=== PATIENT | male | born 1960 | race Caucasian/White ===

== ENCOUNTER 2018-06-22 16:07 | Emergency (ER) | payer OTHER ==
[~2018-06-22] VITALS: Wt 96.0 kg
[2018-06-22 16:28] VITALS: BP 142/80; PULSE 113; RESP 18
[2018-06-22] MEDS ORDERED: PERMETHRIN 1% 59 ML TOP ONE (17:30)
[2018-06-22] MEDS ORDERED: TRIMETHOPRIM/SULFAMETHOX (DS) TAB PO ONE (17:30)
[2018-06-22] MEDS ORDERED: MUPI22OI2 TOP (17:38)
[2018-06-22] MEDS ORDERED: ELIM TOP (17:38)
[2018-06-22] MEDS ORDERED: METF-849 PO (17:38)
[2018-06-22] MEDS ORDERED: SULF1TAB31 PO (17:38)
[2018-06-22] MEDS ORDERED: GABA-528 PO (17:42)
[2018-06-22] MEDS ORDERED: NAPR-985 PO (17:42)
[2018-06-22] MEDS ORDERED: CHOL400T10 PO (17:43)
--- NOTE | 2018-06-22 17:44 | ERD ---
ER Documentation Chief Complaint Chief Complaint RASH HPI 57-year-old male presents with intermittent rashes over the last few months. Is been in temporary housing in [facility] but was recently transferred near this hospital. He was in the middle of being treated for staph infection of extremities with Bactrim and scabies with permethrin but states that his treatment was interrupted due to the move. Denies any fevers, vomiting, sh ortness of breath. Is also requesting refills of his gabapentin and Naprosyn. He is requesting retreatment with permethrin and resumption of Bactrim. He is here with his partner with similar symptoms or skin lesions. ROS All systems reviewed and are negative except as per history of present illness. Medications Home Meds Active Scripts Cholecalciferol* (Vitamin D*) 400 Unit Tablet, 800 UNIT PO DAILY, #90 TAB Prov:FERDINAND TALBOT MD 06/22/18 Naproxen* (Naprosyn*) 500 Mg Tablet, 500 MG PO BID PRN for PAIN AND/OR INFLAMMATION, #40 TAB Prov:FERDINAND TALBOT MD 06/22/18 Gabapentin* (Gabapentin*) 800 Mg Tablet, 800 MG PO TID, #90 TAB Prov:FERDINAND TALBOT MD 06/22/18 Mupirocin* (Bactroban*) 2% -22 Gram Oint...g., 1 APPLIC TOP BID for 7 Days, EA Prov:FERDINAND TALBOT MD 06/22/18 Permethrin* (Elimite*) 5% Cr, 1 APPLIC TOP ONCE for 1 Day, TUB Prov:FERDINAND TALBOT MD 06/22/18 Sulfamethoxazole/Trimethoprim* (Bactrim Ds* Tablet) 1 Each Tablet, 1 TAB PO BID for 10 Days, #14 TAB Prov:FERDINAND TALBOT MD 06/22/18 Reported Medications [None] No Conflict Check 05/23/09 Discontinued Scripts Metformin* (Glucophage*) 500 Mg Tab, 500 MG PO BID, #60 TAB Prov:FERDINAND TALBOT MD 06/22/18 Allergies Allergies: Coded Allergies: No Known Allergies (Verified Allergy, Mild, 05/23/09) PMhx/Soc History of Surgery: No Hx Neurological Disorder: No Hx Respiratory Disorders: No Hx Cardiac Disorders: No Hx Miscellaneous Medical Probl: No Hx Alcohol Use: Yes Hx Substance Use: No Hx Tobacco Use: Yes Physical Exam Vitals Vital Signs Date Temp Pulse Resp B/P (MAP) Pulse Ox O2 O2 Flow FiO2 Time Delivery Rate 06/22/18 97.9 113 18 142/80 99 16:28 (100) Physical Exam Const: No acute distress Head: Atraumatic Eyes: Normal Conjunctiva ENT: Normal External Ears, Nose and Mouth. Neck: Full range of motion. No meningismus. Resp: Clear to auscultation bilaterally Cardio: Regular rate and rhythm, no murmurs Abd: Soft, non tender, non distended. Normal bowel sounds Skin: No petechiae or rashes scattered erythematous open lesions on the forearms and hands. No induration or streaking. Scattered maculopapular lesions as well. No obvious serpiginous lesions. Back: No midline or flank tenderness Ext: No cyanosis, or edema Neur: Awake and alert Psych: Normal Mood and Affect Results 24 hrs Current Medications Medications Dose Sig/Margareth Start Time Status Last (Trade) Ordered Route PRN Stop Time Admin Dose Reason Admin 1 tab ONCE ONCE 06/22/18 DC Trimethoprim/ PO 17:30 06/22/18 17:32 Sulfamethoxaz ole (Bactrim (Ds)) Permethrin 1 applic ONCE ONCE 06/22/18 DC (Nix) TOP 17:30 06/22/18 17:32 Procedures/MDM Patient presents with nonspecific skin lesions with suggestive of likely staph infection. Patient will be treated empirically for scabies as well given his history with permethrin but will be resumed on Bactrim and resumption of his home meds gabapentin and Naprosyn as well. Is no signs of sepsis, purpura, life-threatening rashes, necrotizing fasciitis. Departure Diagnosis: Primary Impression: Rash Condition: Stable Referrals: DOCTOR,NOT ON STAFF (PCP) COMMUNITY CLINICS YOU HAVE RECEIVED A MEDICAL SCREENING EXAM AND THE RESULTS INDICATE THAT YOU DO NOT HAVE A CONDITION THAT REQUIRES URGENT TREATMENT IN THE EMERGENCY DEPARTMENT. FURTHER EVALUATION AND TREATMENT OF YOUR CONDITION CAN WAIT UNTIL YOU ARE SEEN IN YOUR DOCTORS OFFICE WITHIN THE NEXT 1-2 DAYS. IT IS YOUR RESPONSIBILITY TO MAKE AN APPOINTMENT FOR FOLOW-UP CARE. IF YOU HAVE A PRIMARY DOCTOR --you should call your primary doctor and schedule an appointment IF YOU DO NOT HAVE A PRIMARY DOCTOR YOU CAN CALL OUR PHYSICIAN REFERRAL HOTLINE AT IF YOU CAN NOT AFFORD TO SEE A PHYSICIAN YOU CAN CHOSE FROM THE FOLLOWING [facility] [address] [facility] [address] [facility] [facility] [address] [facility] [address] [facility] [address] [facility]. [facility] [address] Additional Instructions: Recheck with primary doctor for treatment of diabetes and arthritis. Recheck otherwise for fevers, worsening swelling, redness, new worsening symptoms. FERDINAND TALBOT MD June 22, 2018 17:44
== END 2018-06-22 18:13 | disposition home or self-care (01) ==
LOC: FTE 16:07
DX: R21 Rash and other nonspecific skin eruption (principal); Z87.891 Personal history of nicotine dependence
CPT/HCPCS: Z7502; Z7610; 99283

== ENCOUNTER 2018-07-13 18:09 | Emergency (ER) | payer OTHER ==
[~2018-07-13] VITALS: Ht 188 cm; Wt 92.0 kg
[~2018-07-13 18:09] MED LIST: CHOL400T10 PO; ELIM TOP; GABA-528 PO; MUPI22OI2 TOP; NAPR-985 PO; SULF1TAB31 PO
[2018-07-13 18:52] VITALS: BP 128/81; PULSE 106; RESP 18; Ht 188 cm; Wt 92.0 kg
--- NOTE | 2018-07-13 20:24 | ERD ---
ER Documentation Chief Complaint Chief Complaint S/P SCABIES TX, LEFT FOREARM STILL PRESENTS WITH RASH HPI 57-year-old male with past medical history of herpes simplex virus type I and scabies presenting to the emergency department complaining of tingling sensation to the corners of his lips and itching to his bilateral upper extremities for the past several weeks. He states he completed a scabies treatment 2 weeks ago but has continued to have itching and lesions noted to his arms. He states he is homeless. He reports associated pruritus which is intermittent. He denies any fevers, chills, or other symptoms at this time. ROS All systems reviewed and are negative except as per history of present illness. Medications Home Meds Active Scripts Doxycycline Hyclate* (Doxycycline Hyclate*) 100 Mg Tablet.dr, 100 MG PO BID for 10 Days, TAB Prov:ENEDINA LIU PA-C 07/13/18 Permethrin* (Elimite*) 5% Cr, 1 APPLIC TOP ONCE, #1 TUB 1 Refill Prov:ENEDINA LIU PA-C 07/13/18 Docosanol (Abreva) 2 Gm Cream.gm., 1 APPLIC TOP 5 TIMES DAILY, #1 TUB Prov:ENEDINA LIU PA-C 07/13/18 Cholecalciferol* (Vitamin D*) 400 Unit Tablet, 800 UNIT PO DAILY, #90 TAB Prov:FERDINAND TALBOT MD 06/22/18 Naproxen* (Naprosyn*) 500 Mg Tablet, 500 MG PO BID PRN for PAIN AND/OR INFLAMMATION, #40 TAB Prov:FERDINAND TALBOT MD 06/22/18 Gabapentin* (Gabapentin*) 800 Mg Tablet, 800 MG PO TID, #90 TAB Prov:FERDINAND TALBOT MD 06/22/18 Mupirocin* (Bactroban*) 2% -22 Gram Oint...g., 1 APPLIC TOP BID for 7 Days, EA Prov:FERDINAND TALBOT MD 06/22/18 Permethrin* (Elimite*) 5% Cr, 1 APPLIC TOP ONCE for 1 Day, TUB Prov:FERDINAND TALBOT MD 06/22/18 Sulfamethoxazole/Trimethoprim* (Bactrim Ds* Tablet) 1 Each Tablet, 1 TAB PO BID for 10 Days, #14 TAB Prov:FERDINAND TALBOT MD 06/22/18 Reported Medications [None] No Conflict Check 05/23/09 Allergies Allergies: Coded Allergies: No Known Allergies (Verified Allergy, Mild, 05/23/09) PMhx/Soc History of Surgery: No Hx Neurological Disorder: No Hx Respiratory Disorders: No Hx Cardiac Disorders: No Hx Miscellaneous Medical Probl: No Hx Alcohol Use: Yes Hx Substance Use: No Hx Tobacco Use: Yes Smoking Status: Current every day smoker FmHx Family History: No diabetes Physical Exam Vitals Vital Signs Date Temp Pulse Resp B/P (MAP) Pulse Ox O2 O2 Flow FiO2 Time Delivery Rate 07/13/18 97.7 106 18 128/81 98 18:52 (97) Physical Exam Const: No acute distress Head: Atraumatic Eyes: Normal Conjunctiva ENT: Normal External Ears, Nose and Mouth. Neck: Full range of motion. No meningismus. Resp: No respiratory distress. Skin: No petechiae or rashes Ext: Multiple skin lesions noted to the bilateral upper extremities with mild surrounding erythema. There are some linear burrows present. Neur: Awake and alert Psych: Normal Mood and Affect Procedures/MDM 57-year-old male presents to the emergency department with signs and symptoms most consistent with early herpes simplex virus 1 outbreak and scabies. No evidence of significant or disseminated cellulitis. No evidence of sepsis. Patient will be treated as an outpatient with prescriptions and advised to follow-up with a primary care physician within the next 24 to 48 hours and return to the department immediately for any new or worsening or concerning sy mptoms. Patient was in agreement with the diagnosis, plan, need for follow-up, return precautions. Departure Diagnosis: Primary Impression: Rash and nonspecific skin eruption Condition: Fair Additional Instructions: Follow up with your PCP within the next 1-3 days for a repeat evaluation. If you require a referral to a specialist, your Primary Care Provider may be able to provide this for you. In most patient cases, a referral is not required. If you have further questions regarding this matter, please ask your Primary Care Pro vider. Return the the emergency department immediately if symptoms worsen or change. If you have any questions regarding medications, ask your pharmacist or us before you leave. If any adverse reactions, occur while taking your medications, discontinue the treatment and return to the emergency department immediately. If any new or worsening symptoms, uncontrolled fevers, or other unexplained symptoms occur, return to the emergency department immediately. Take your medications as directed, and complete the entire course of treatment. ENEDINA LIU PA-C Jul 13, 2018 20:24
[2018-07-13] MEDS ORDERED: DOCO2CRE3 TOP (20:26)
[2018-07-13] MEDS ORDERED: DOXY100T20 PO (20:26)
[2018-07-13] MEDS ORDERED: ELIM TOP (20:26)
== END 2018-07-13 21:01 | disposition home or self-care (01) ==
LOC: FTE 18:09
DX: L98.9 Disorder of the skin and subcutaneous tissue, unspecified (principal); F17.210 Nicotine dependence, cigarettes, uncomplicated
CPT/HCPCS: 99283

== ENCOUNTER 2018-07-25 14:26 | Emergency (ER) | payer OTHER ==
[~2018-07-25] VITALS: Ht 188 cm; Wt 100.0 kg
[~2018-07-25 14:26] MED LIST changes: +DOCO2CRE3 TOP; +DOXY100T20 PO
[2018-07-25 14:47] VITALS: BP 134/86; PULSE 92; RESP 16; Ht 188 cm; Wt 100.0 kg
[2018-07-25] MEDS ORDERED: ELIM TOP (15:44)
[2018-07-25] MEDS ORDERED: ACYC5CRE7 TOP (15:45)
[2018-07-25] MEDS ORDERED: DOXY100T20 PO (15:45)
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
== END 2018-07-25 16:00 | disposition home or self-care (01) ==
LOC: FTE 14:26
DX: B86 Scabies (principal); B00.9 Herpesviral infection, unspecified; L98.9 Disorder of the skin and subcutaneous tissue, unspecified
CPT/HCPCS: 99283

== ENCOUNTER 2018-08-12 06:28 | Emergency (ER) | payer OTHER ==
[~2018-08-12] VITALS: Ht 182.9 cm; Wt 90.0 kg
[~2018-08-12 06:28] MED LIST changes: +ACYC5CRE7 TOP
[2018-08-12 06:30] VITALS: Ht 182.9 cm; Wt 90.0 kg
[2018-08-12] MEDS ORDERED: ELIM TOP (06:48)
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
[2018-08-12 07:16] VITALS: BP 118/65; PULSE 80; RESP 20
== END 2018-08-12 07:19 | disposition home or self-care (01) ==
LOC: E/R 06:28
DX: B86 Scabies (principal); Z76.0 Encounter for issue of repeat prescription
CPT/HCPCS: 99281